=== PATIENT | male | born 1985 | race Asian ===

== ENCOUNTER 2019-03-25 00:04 | Emergency (ER) | payer BC, OTHER ==
[~2019-03-25] VITALS: Ht 157.5 cm; Wt 63.5 kg
--- NOTE | 2019-03-25 00:05 | NUR ---
TO BED 15 BIB EMS C/O R SHOULDER PAIN S/P GLF. (+) ETOH, (+) KO. PT DENIES SI OR HI AT THIS TIME. PT PT PT ATTEMPTED TO RUN INTO TRAFFIC EARLIER. PT CALM AND COOPERATIVE AT THIS TIME. PT AT BEDSIDE. 1:1 SITTER AT BEDSIDE FOR PT SAFETY. PENDING ER MD ROD.
--- NOTE | 2019-03-25 00:39 | NUR ---
ER MD AT BEDSIDE TO EVAL PT WITH ORDERS RECEIVED. WILL CARRY OUT ORDERS.
--- NOTE | 2019-03-25 01:04 | NUR ---
URINE SAMPLE COLLECTED AND SENT TO LAB.
--- NOTE | 2019-03-25 01:22 | NUR ---
RENATA AT BEDSIDE FOR BLOOD DRAW.
[2019-03-25 01:26] LABS: APPEARANCE,URINE Clear (CLEAR); BILIRUBIN,URINE Negative (NEGATIVE); BLOOD, URINE Negative Ery/uL (NEGATIVE); COLOR,URINE Yellow (YELLOW); KETONES,URINE 15 (NEGATIVE); LEUKOCYTE ESTERASE ,URINE Negative (NEGATIVE); NITRITE, URINE Negative (NEGATIVE); PH,URINE 5.5 (5.0-8.0); PROTEIN,URINE Negative (NEGATIVE); UGLUCOSE Negative (NEGATIVE); UROBILINOGEN,URINE 0.2 EU/dL (0.2)
[2019-03-25 01:31] LABS: BASOPHILS % (AUTO) 0.5 % (0.0-2.0); EOSINOPHILS % (AUTO) 3.5 % (0.0-6.0); HEMATOCRIT 43 % (39-51); HEMOGLOBIN 14.5 g/dL (13.5-17.5); LYMPHOCYTES # (AUTO) 1.5 /CMM (0.8-4.8); LYMPHOCYTES % (AUTO) 28.1 % (20.0-44.0); MEAN CORPUSCULAR HGB CONC 34 g/dl (31.0-36.0); MEAN CORPUSCULAR VOLUME 92 fL (80-96); MONOCYTES # (AUTO) 0.4 /CMM (0.1-1.30); NEUTROPHILS # (AUTO) 3.2 /CMM (1.8-8.9); NEUTROPHILS % (AUTO) 59.9 % (43.0-81.0); PLATELET COUNT (AUTO) 294 /CMM (150-450); RED BLOOD CELL COUNT(AUTO) 4.66 MIL/uL (4.5-6.0); WHITE BLOOD COUNT (AUTO) 5.3 K/uL (4.3-11.0)
--- NOTE | 2019-03-25 01:35 | NUR ---
PT RETURNED FROM CT
[2019-03-25 01:42] LABS: CALCIUM, SERUM 8.5 mg/dL (8.5-10.1); POTASSIUM 3.1 mmol/L (3.5-5.1)
[2019-03-25 01:48] LABS: ALBUMIN 3.9 g/dL (3.4-5.0); BILIRUBIN,DIRECT 0.1 mg/dL (0.0-0.2); BILIRUBIN,TOTAL 0.3 mg/dL (0.2-1.0); SALICYLATE 0.5 mg/dL (2.8-20.0); TOTAL PROTEIN, SERUM 7.5 g/dL (6.4-8.2)
--- NOTE | 2019-03-25 02:20 | NUR ---
[facility] () CONTACT INFORMATION: [phone]
[2019-03-25] MEDS ORDERED: POTASSIUM CHLORIDE 20 MEQ TAB.PRT.SR PO ONE ×2 (02:30→02:42)
[2019-03-25 02:38] LABS: BACTERIA,URINE Few /HPF (None Seen); MUCUS,URINE Few /LPF (None Seen); RBC,URINE 0-2 /HPF (0-2); SQUAMOUS EPITHELIAL CELL,UR Rare /HPF (None Seen)
--- NOTE | 2019-03-25 04:40 | NUR ---
PT RESTING COMFORTABLY IN BED. VITAL SIGNS STABLE. NO ACUTE DISTRESS NTOED AT THIS TIME. SITTER AT BEDSIDE
--- NOTE | 2019-03-25 05:34 | NUR ---
CALLED AVEL[facility], [facility] FOR EVALUATION. NO ANSWER. WILL FOLLOW UP
--- NOTE | 2019-03-25 06:14 | NUR ---
CALLED MELISA YOU FOR EVALUATION. ON THE WAY TO THE HOSPITAL
--- NOTE | 2019-03-25 06:23 | NUR ---
PT BECOMING MORE ANXIOUS, PACING AROUND HALLWAY AND CONSTANTLY NEEDS TO BE INSTRUCTED TO RETURN TO BED. ER MD AT BEDSIDE TO REASSESS PT. PT REMAINS CALM AND COOPERATIVE. SITTER STILL AT BEDSIDE. WILL CONTINUE TO MONITOR
--- NOTE | 2019-03-25 07:58 | NUR ---
ART MENTAL HEALTH EVAL AT BEDSIDE.
--- NOTE | 2019-03-25 08:33 | NUR ---
SEEN AND EVALUATED BY ART, AT BEDSIDE. SPOKE WITH THE PATIENT LENGTHLY. ACCORDING TO THE PSYCHIATRIC EVALUATION TEAMART, THE PATIENT IS NOT A DANGER TO HIMSELF NOR TO OTHERS; NO IMMINENT THREAT. THE PATIENT PLANS TO GO TO [facility] THE PATIENT WAS INSTRUCTED TO FOLLOW-UP WITH PCP AND PSYCHIATRIST.
--- NOTE | 2019-03-25 09:09 | NUR ---
MEDICALLY AND PSYCH CLEARED. D/C HOME IN STABLE CONDITION.
[2019-03-25 09:11] VITALS: BP 117/75
== END 2019-03-25 09:12 | disposition home or self-care (01) ==
LOC: ER 00:06
DX: S40.011A Contusion of right shoulder, initial encounter (principal); F10.129 Alcohol abuse with intoxication, unspecified; F32.9 Major depressive disorder, single episode, unspecified; R51 Headache; I10 Essential (primary) hypertension; W01.0XXA Fall on same level from slipping, tripping and stumbling without subsequent striking against object, initial encounter; Y93.89 Activity, other specified; Y92.89 Other specified places as the place of occurrence of the external cause; Y99.8 Other external cause status
CPT/HCPCS: 36415; 70450; 73030; 80048; 80076; 80305; 80307 ×2; 80329; 81001; 85025; 99284; G0480; 81000-TC